=== PATIENT | male | born 1990 | race Caucasian/White ===

== ENCOUNTER 2017-11-18 08:23 | Inpatient (IN) | payer MEDICAID ==
[~2017-11-18] VITALS: Ht 177.8 cm; Wt 91.7 kg
[2017-11-18] MEDS ORDERED: NACL 0.9% 1,000 ML IV ONE (08:28)
[2017-11-18 08:30] VITALS: BP_SYST 147
[2017-11-18] MEDS ORDERED: ONDANSETRON HCL 4 MG/2 ML VIAL IVP ONE ×3 (08:30→14:45)
[2017-11-18] MEDS ORDERED: MORPHINE 2 MG/ML INJ. SYRINGE IVP ONE ×4 (08:30→14:45)
[2017-11-18 08:54] LABS: BASOPHILS # (AUTO) 0.1 K/uL (0.0-0.2); BASOPHILS % (AUTO) 0.8 % (0.0-2.0); EOSINOPHILS # (AUTO) 0.1 K/uL (0.0-0.4); EOSINOPHILS % (AUTO) 0.6 % (0.0-4.0); HEMATOCRIT 55.2 % (36-54); HEMOGLOBIN 18.6 g/dL (14.0-18.0); LYMPHOCYTES # (AUTO) 1.9 K/uL (1.0-5.5); LYMPHOCYTES % (AUTO) 12.4 % (20.5-51.5); MEAN CORPUSCULAR HEMOGLOBIN 31 pg (27-31); MEAN CORPUSCULAR HGB CONC 34 % (32-36); MEAN CORPUSCULAR VOLUME 93 fL (79.0-98.0); MONOCYTES # (AUTO) 0.9 K/uL (0.0-1.0); MONOCYTES % (AUTO) 5.7 % (1.7-9.3); NEUTROPHILS # (AUTO) 12.7 K/uL (1.8-7.7); NEUTROPHILS % (AUTO) 80.5 % (40.0-70.0); RED BLOOD CELL COUNT(AUTO) 5.92 MIL/uL (4.2-6.2); RED CELL DISTRIBUTION WIDTH 14.3 % (9.0-15.0); WHITE BLOOD COUNT (AUTO) 15.7 K/uL (4.8-10.8)
[2017-11-18] MEDS ORDERED: MORPHINE 2 MG/ML INJ. SYRINGE ONE ×2 (08:56→14:46)
[2017-11-18 09:04] LABS: CALCIUM 10.4 mg/dL (8.4-11.0); CREATININE 1.22 mg/dL (0.55-1.30); POTASSIUM 3.4 mmol/L (3.5-5.1)
[2017-11-18 09:09] LABS: ALBUMIN 4.8 g/dL (3.4-4.8); TOTAL BILIRUBIN 1.3 mg/dL (0.0-1.0)
[2017-11-18] MEDS ORDERED: ONDANSETRON HCL 4 MG/2 ML VIAL ONE ×2 (09:59→14:46)
[2017-11-18 10:37] LABS: PLATELET COUNT (AUTO) 312 K/uL (130-430)
[2017-11-18 11:18] LABS: BILIRUBIN,URINE 1+ (NEGATIVE); BLOOD, URINE NEGATIVE (NEGATIVE); CLARITY/URINE CLEAR (CLEAR); COLOR,URINE YELLOW (YELLOW); GLUCOSE,URINE NEGATIVE (NEGATIVE); KETONES,URINE 1+ (NEGATIVE); LEUKOCYTE ESTERASE ,URINE NEGATIVE (NEGATIVE); NITRITE, URINE NEGATIVE (NEGATIVE); PH,URINE >=9.0 (5.0-8.0); PROTEIN URINE 2+ (NEGATIVE)
[2017-11-18 11:26] LABS: BACTERIA,URINE MODERATE /HPF (None Seen); RBC,URINE 0-3 /HPF (0-3)
[2017-11-18 11:27] LABS: MUCUS,URINE 1+ /LPF (None Seen)
[2017-11-18] MEDS ORDERED: POTASSIUM CHLORIDE 30 MEQ in NS 250 ML IV ONE (11:30)
[2017-11-18 11:31] LABS: BARBITURATE, URINE NEGATIVE (NEG <=200); BENZODIAZEPINE, URINE NEGATIVE (NEG <=150); CANNABINOID, URINE POSITIVE (NEG <=50); COCAINE, URINE NEGATIVE (NEG <=150); METHAMPHETAMINES SCREEN,URINE NEGATIVE (NEG <=500); OPIATE, URINE POSITIVE (NEG <=100); PHENCYCLIDINE SCREEN,URINE NEGATIVE (NEG <=25); UR TRICYCLIC ANTIDEPRESSANTS NEGATIVE (NEG <=300); URINE AMPHETAMINE NEGATIVE (NEG <=500); URINE METHADONE NEGATIVE (NEG <=200); URINE OXYCODONE SCREEN NEGATIVE (NEG <=100); URINE PROPOXYPHENE SCREEN NEGATIVE (NEG <=300)
[2017-11-18 11:53] VITALS: BP_SYST 151
[2017-11-18] MEDS ORDERED: KCL 20 mEq in NS 1000 mL 1,000 ML IV ONE (12:30)
[2017-11-18] MEDS ORDERED: PANTOPRAZOLE SODIUM 40 MG/VIAL (PROTONIX) IVP ONE (12:30)
[2017-11-18] MEDS ORDERED: ACETAMINOPHEN 650 MG SUPP.RECT RC PRN (12:30)
[2017-11-18] MEDS: KCL 20 mEq in NS 1000 mL 1,000 ML IV SCH (16:28)
[2017-11-18] MEDS ORDERED: MORPHINE 2 MG/ML INJ. SYRINGE IVP PRN (16:45)
[2017-11-18] MEDS: METOCLOPRAMIDE HCL 10 MG/2 ML VIAL IVP PRN (17:09)
[2017-11-18] MEDS ORDERED: LORazepam 2 MG/ML VIAL IVP PRN (17:15)
[2017-11-18] MEDS: MORPHINE 2 MG/ML INJ. SYRINGE IVP PRN (19:37)
[2017-11-18 20:00] VITALS: BP_SYST 152
[2017-11-18] MEDS: ONDANSETRON HCL 4 MG/2 ML VIAL IVP PRN (22:20)
[2017-11-18] MEDS: HYDROmorphone 1 MG INJ. 1 MG/ML AMPUL IVP PRN (22:52)
[2017-11-19 00:10] VITALS: BP_SYST 155
[2017-11-19] MEDS: KCL 20 mEq in NS 1000 mL 1,000 ML IV SCH ×3 (01:56→17:08)
[2017-11-19] MEDS: HYDROmorphone 1 MG INJ. 1 MG/ML AMPUL IVP PRN ×6 (02:59→23:10)
[2017-11-19] MEDS: METOCLOPRAMIDE HCL 10 MG/2 ML VIAL IVP PRN ×2 (06:47→18:53)
[2017-11-19 06:53] LABS: ALBUMIN 3.9 g/dL (3.4-4.8); BILIRUBIN,DIRECT 0.3 mg/dL (0.0-0.3); CALCIUM 9.1 mg/dL (8.4-11.0); CREATININE 0.97 mg/dL (0.55-1.30); POTASSIUM 3.7 mmol/L (3.5-5.1); TOTAL BILIRUBIN 1.3 mg/dL (0.0-1.0)
[2017-11-19 08:00] VITALS: BP_SYST 146
[2017-11-19 08:11] LABS: BASOPHILS # (AUTO) 0.1 K/uL (0.0-0.2); BASOPHILS % (AUTO) 0.3 % (0.0-2.0); HEMOGLOBIN 18.2 g/dL (14.0-18.0); LYMPHOCYTES # (AUTO) 1.3 K/uL (1.0-5.5); LYMPHOCYTES % (AUTO) 6.1 % (20.5-51.5); MEAN CORPUSCULAR HEMOGLOBIN 31 pg (27-31); MEAN CORPUSCULAR HGB CONC 34 % (32-36); MEAN CORPUSCULAR VOLUME 93 fL (79.0-98.0); MONOCYTES # (AUTO) 0.9 K/uL (0.0-1.0); NEUTROPHILS # (AUTO) 19.2 K/uL (1.8-7.7); NEUTROPHILS % (AUTO) 89.6 % (40.0-70.0); PLATELET COUNT (AUTO) 276 K/uL (130-430); RED BLOOD CELL COUNT(AUTO) 5.79 MIL/uL (4.2-6.2); RED CELL DISTRIBUTION WIDTH 14.7 % (9.0-15.0); WHITE BLOOD COUNT (AUTO) 21.5 K/uL (4.8-10.8)
[2017-11-19] MEDS: PANTOPRAZOLE SODIUM 40 MG/VIAL (PROTONIX) IVP SCH (09:07)
[2017-11-19 20:00] VITALS: BP_SYST 155
[2017-11-20 00:29] VITALS: BP_SYST 142
[2017-11-20] MEDS: KCL 20 mEq in NS 1000 mL 1,000 ML IV SCH (01:00)
[2017-11-20] MEDS: MORPHINE 2 MG/ML INJ. SYRINGE IVP PRN ×3 (02:31→19:46)
[2017-11-20] MEDS: HYDROmorphone 1 MG INJ. 1 MG/ML AMPUL IVP PRN ×4 (05:20→22:39)
[2017-11-20 06:48] LABS: ALBUMIN 3.2 g/dL (3.4-4.8); BILIRUBIN,DIRECT 0.4 mg/dL (0.0-0.3); CALCIUM 8.8 mg/dL (8.4-11.0); CREATININE 0.77 mg/dL (0.55-1.30); POTASSIUM 3.6 mmol/L (3.5-5.1); TOTAL BILIRUBIN 1.5 mg/dL (0.0-1.0)
[2017-11-20 06:57] LABS: BASOPHILS % (AUTO) 0.3 % (0.0-2.0); EOSINOPHILS # (AUTO) 0.1 K/uL (0.0-0.4); EOSINOPHILS % (AUTO) 0.8 % (0.0-4.0); HEMATOCRIT 45.7 % (36-54); HEMOGLOBIN 15.8 g/dL (14.0-18.0); LYMPHOCYTES # (AUTO) 1.5 K/uL (1.0-5.5); MEAN CORPUSCULAR HEMOGLOBIN 32 pg (27-31); MEAN CORPUSCULAR HGB CONC 35 % (32-36); MEAN CORPUSCULAR VOLUME 94 fL (79.0-98.0); MONOCYTES % (AUTO) 6.1 % (1.7-9.3); NEUTROPHILS # (AUTO) 13.6 K/uL (1.8-7.7); NEUTROPHILS % (AUTO) 83.8 % (40.0-70.0); PLATELET COUNT (AUTO) 216 K/uL (130-430); RED BLOOD CELL COUNT(AUTO) 4.87 MIL/uL (4.2-6.2); RED CELL DISTRIBUTION WIDTH 14.3 % (9.0-15.0); WHITE BLOOD COUNT (AUTO) 16.2 K/uL (4.8-10.8)
[2017-11-20 08:00] VITALS: BP_SYST 144
[2017-11-20] MEDS: D5LR 1,000 ML IV SCH ×3 (08:00→16:29)
[2017-11-20] MEDS: PANTOPRAZOLE SODIUM 40 MG/VIAL (PROTONIX) IVP SCH (08:46)
[2017-11-20 11:03] VITALS: BP_SYST 146
[2017-11-20] MEDS: ONDANSETRON HCL 4 MG/2 ML VIAL IVP PRN (12:23)
[2017-11-20 15:03] VITALS: BP_SYST 146
[2017-11-20 19:45] VITALS: BP_SYST 143
[2017-11-21] MEDS: MORPHINE 2 MG/ML INJ. SYRINGE IVP PRN ×3 (01:00→15:04)
[2017-11-21] MEDS: D5LR 1,000 ML IV SCH ×3 (01:06→17:20)
[2017-11-21 02:01] VITALS: BP_SYST 132
[2017-11-21] MEDS: HYDROmorphone 1 MG INJ. 1 MG/ML AMPUL IVP PRN ×2 (02:43→11:48)
[2017-11-21 07:09] LABS: CALCIUM 9.8 mg/dL (8.4-11.0); CREATININE 0.87 mg/dL (0.55-1.30); POTASSIUM 3.4 mmol/L (3.5-5.1)
[2017-11-21] MEDS: PANTOPRAZOLE SODIUM 40 MG/VIAL (PROTONIX) IVP SCH (08:09)
[2017-11-21 08:48] VITALS: BP_SYST 136
[2017-11-21 11:02] VITALS: BP_SYST 126
[2017-11-21] MEDS: ONDANSETRON HCL 4 MG/2 ML VIAL IVP PRN (11:51)
[2017-11-21] MEDS ORDERED: POTASSIUM CHLORIDE 10 MEQ TAB.PRT.SR PO ONE (12:15)
[2017-11-21 15:02] VITALS: BP_SYST 141
[2017-11-21 16:29] VITALS: BP_SYST 122
== END 2017-11-21 17:30 | disposition home or self-care (01) | DRG 282 ==
LOC: SED 08:23 → STU 11:24 → SMU 11-19 16:53
PROVIDERS: ADMIT Internal Medicine; ATTEND Internal Medicine
DX: K85.20 Alcohol induced acute pancreatitis without necrosis or infection (principal); K70.10 Alcoholic hepatitis without ascites; K76.0 Fatty (change of) liver, not elsewhere classified; F15.20 Other stimulant dependence, uncomplicated; D72.829 Elevated white blood cell count, unspecified; E66.9 Obesity, unspecified; E87.6 Hypokalemia; F10.20 Alcohol dependence, uncomplicated; R73.9 Hyperglycemia, unspecified; Z79.899 Other long term (current) drug therapy; Z68.29 Body mass index [BMI] 29.0-29.9, adult; R74.0 Nonspecific elevation of levels of transaminase and lactic acid dehydrogenase [LDH]
CPT/HCPCS: 36415; 76700-TC; 80048; 80053; 80076; 80307; 81000-TC; 82140-TC; 82150-TC; 83690-TC; 83735-TC; 85025; 87040-TC; 87086; 96374; 96376; 99285; C9113; G0482; J1170; J2060; J2270; J2405; J2765; J3480; J7030; J7050; J7120